=== PATIENT | female | born 1980 | race Caucasian/White ===

== ENCOUNTER 2016-12-07 15:15 | Outpatient (RCR) | payer OTHER | END 2016-12-11 12:00 | disposition home or self-care (01) | LOC: PT 15:15 | PROVIDERS: ATTEND Orthopaedic Surgery | DX: S83.242D Other tear of medial meniscus, current injury, left knee, subsequent encounter (principal); X58.XXXD Exposure to other specified factors, subsequent encounter; M25.662 Stiffness of left knee, not elsewhere classified ==

== ENCOUNTER → 2017-01-03 | Outpatient (CLI) | payer OTHER | LOC: LAB 10:37 | PROVIDERS: ATTEND Family Medicine | DX: Z20.2 Contact with and (suspected) exposure to infections with a predominantly sexual mode of transmission (principal) | CPT/HCPCS: 36415; 86592; 86695; 86696 ==

== ENCOUNTER 2017-01-30 07:22 | Emergency (ER) | payer OTHER ==
[~2017-01-30] VITALS: Ht 167.6 cm; Wt 95.3 kg
[2017-01-30 08:18] VITALS: BP 108/71
== END 2017-01-30 08:19 | disposition home or self-care (01) ==
LOC: ED 07:23
DX: J20.9 Acute bronchitis, unspecified (principal); F17.210 Nicotine dependence, cigarettes, uncomplicated; Z87.09 Personal history of other diseases of the respiratory system
CPT/HCPCS: 99282; 99283

== ENCOUNTER 2017-04-19 09:21 | Emergency (ER) | payer OTHER ==
[~2017-04-19] VITALS: Ht 167.6 cm; Wt 95.0 kg
[~2017-04-19 09:21] MED LIST: ALBU8.5H2 IH; ALBU8CC IH; AMOX1TAB12 PO; AZIT250T81 PO; BENZ-22 PO; IPRA3AMP11 INH; PRED20TA PO
--- OUTSIDE RECORDS SUMMARY | 2017-04-19 09:28 | XMS REPORT | Continuity of Care Document ---
Author Author [facility] Address Unknown Phone Unavailable Allergies Active Description Code Type Severity Reaction Onset Reported/Identified Relationship to Patient Clinical Status Yes ethinyl estradiol 1286 1 N/A N/A Yes levonorgestrel 1304 1 N/A N/A Yes Sulfa (Sulfonamide Antibiotics) 491 3 N/A N/A Yes niacin [id number] Drug Allergy Unknown N/A 01/30/2017 Yes Sulfa (Sulfonamide Antibiotics) [id number] Drug Allergy Unknown N/A 01/30/2017 Medications Problems Date Dx Coded Attending Type Code Diagnosis Diagnosed By 10/26/1199 Adam HERNANDEZ, Dae Pan Ot M25.662 STIFFNESS OF LEFT KNEE, NOT ELSEWHERE CL 10/26/1199 Dae Medina MD Ot S83.242D OTH TEAR OF MEDIAL MENISCUS, CURRENT INJ 10/26/1199 Dae Medina MD Ot X58.XXXD EXPOSURE TO OTHER SPECIFIED FACTORS, SUB 04/29/2012 Ot 493.92 ASTHMA, UNSPECIFIED, W (ACUTE) EXACERBAT 05/12/2015 Ej Collier MD Ot 927.3 05/12/2015 Ej Collier MD Ot 927.3 03/21/2016 Ej Collier MD Ot 927.3 CRUSHING INJURY FINGER 03/21/2016 Ej Collier MD Ot E928.9 ACCIDENT NOS 04/29/2016 Ej Collier MD Ot 927.3 CRUSHING INJURY FINGER 04/29/2016 Ej Collier MD Ot E928.9 ACCIDENT NOS 05/04/2016 ALEYDA WILLIAM Ot J30.2 OTHER SEASONAL ALLERGIC RHINITIS 05/04/2016 ALEYDA WILLIAM Ot J45.21 MILD INTERMITTENT ASTHMA WITH (ACUTE) EX 08/18/2016 Brenda HERNANDEZ, Jose Daniel Rodriguez Ot N60.01 SOLITARY CYST OF RIGHT BREAST 08/18/2016 Brenda HERNANDEZ, Jose Daniel Rodriguez Ot N60.02 SOLITARY CYST OF LEFT BREAST 08/18/2016 Brenda HERNANDEZ, Jose Daniel Rodriguez Ot N64.4 MASTODYNIA 09/29/2016 W M25.562 Acute pain of left knee 10/13/2016 W M25.562 Acute pain of left knee 10/21/2016 ALEYDA WILLIAM Ot J30.2 OTHER SEASONAL ALLERGIC RHINITIS 10/21/2016 ALEYDA WILLIAM Ot J45.21 MILD INTERMITTENT ASTHMA WITH (ACUTE) EX 10/21/2016 ELYSE HERNANDEZ, GUNNER Bernard Ot D24.1 BENIGN NEOPLASM OF RIGHT BREAST 10/26/2016 GUNNER PAPPAS MD Ot D24.1 BENIGN NEOPLASM OF RIGHT BREAST 10/27/2016 Jose Daniel Gutierrez MD Ot N60.01 SOLITARY CYST OF RIGHT BREAST 10/27/2016 Jose Daniel Gutierrez MD Ot N60.02 SOLITARY CYST OF LEFT BREAST 10/27/2016 Jose Daniel Gutierrez MD Ot N64.4 MASTODYNIA 11/07/2016 W S83.242A Tear of medial meniscus of left knee, current, unspecified tear type, initial encounter 11/07/2016 W Z01.818 Preop examination 11/13/2016 Amira HERNANDEZ, Ej Mercado Ot 927.3 CRUSHING INJURY FINGER 11/13/2016 Amira HERNANDEZ, Ej Mercado Ot E928.9 ACCIDENT NOS 11/13/2016 ALEYDA WILLIAM Ot J30.2 OTHER SEASONAL ALLERGIC RHINITIS 11/13/2016 ALEYDA WILLIAM Ot J45.21 MILD INTERMITTENT ASTHMA WITH (ACUTE) EX 11/13/2016 Brenda HERNANDEZ, Jose Daniel Rodriguez Ot N60.01 SOLITARY CYST OF RIGHT BREAST 11/13/2016 Jose Daniel Gutierrez MD Ot N60.02 SOLITARY CYST OF LEFT BREAST 11/13/2016 Jose Daniel Gutierrez MD Ot N64.4 MASTODYNIA 11/13/2016 ELYSE HERNANDEZ, GUNNER Bernard Ot D24.1 BENIGN NEOPLASM OF RIGHT BREAST 11/13/2016 SABRA HERNANDEZ, LITO Jaffe Ot F17.210 NICOTINE DEPENDENCE, CIGARETTES, UNCOMPL 11/13/2016 LITO MONTAÑO MD Ot F17.220 NICOTINE DEPENDENCE, CHEWING TOBACCO, UN 11/13/2016 SABRA HERNANDEZ, LITO Jaffe Ot M79.662 PAIN IN LEFT LOWER LEG 11/13/2016 LITO MONTAÑO MD Ot Z98.890 OTHER SPECIFIED POSTPROCEDURAL STATES 11/14/2016 Amira HERNANDEZ, Ej Mercado Ot 927.3 CRUSHING INJURY FINGER 11/14/2016 Amira HERNANDEZ, Ej Mercado Ot E928.9 ACCIDENT NOS 11/14/2016 ALEYDA WILLIAM Ot J30.2 OTHER SEASONAL ALLERGIC RHINITIS 11/14/2016 ALEYDA WILLIAM Ot J45.21 MILD INTERMITTENT ASTHMA WITH (ACUTE) EX 11/14/2016 Brenda HERNANDEZ, Jose Daniel Rodriguez Ot N60.01 SOLITARY CYST OF RIGHT BREAST 11/14/2016 Jose Daniel Gutierrez MD Ot N60.02 SOLITARY CYST OF LEFT BREAST 11/14/2016 Jose Daniel Gutierrez MD Ot N64.4 MASTODYNIA 11/14/2016 ELYSE HERNANDEZ, GUNNER Bernard Ot D24.1 BENIGN NEOPLASM OF RIGHT BREAST 11/18/2016 LITO MONTAÑO MD Ot F17.210 NICOTINE DEPENDENCE, CIGARETTES, UNCOMPL 11/18/2016 LITO MONTAÑO MD Ot F17.220 NICOTINE DEPENDENCE, CHEWING TOBACCO, UN 11/18/2016 LITO MONTAÑO MD Ot M79.662 PAIN IN LEFT LOWER LEG 11/18/2016 LITO MONTAÑO MD Ot Z98.890 OTHER SPECIFIED POSTPROCEDURAL STATES 11/18/2016 Jose Daniel Gutierrez MD Ot N60.01 SOLITARY CYST OF RIGHT BREAST 11/18/2016 Jose Daniel Gutierrez MD Ot N60.02 SOLITARY CYST OF LEFT BREAST 11/18/2016 Jose Daniel Gutierrez MD Ot N64.4 MASTODYNIA 11/23/2016 W 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, chondromalacia, left 11/23/2016 W S83.242A Tear of medial meniscus of left knee, current, unspecified tear type, initial encounter 11/23/2016 Dae Medina MD Ot M25.662 STIFFNESS OF LEFT KNEE, NOT ELSEWHERE CL 11/23/2016 Dae Medina MD Ot S83.242D OTH TEAR OF MEDIAL MENISCUS, CURRENT INJ 11/23/2016 Dae Medina MD Ot X58.XXXD EXPOSURE TO OTHER SPECIFIED FACTORS, SUB 11/24/2016 Dae Medina MD Ot M25.662 STIFFNESS OF LEFT KNEE, NOT ELSEWHERE CL 11/24/2016 Adam HERNANDEZ Dae L Ot S83.242D OTH TEAR OF MEDIAL MENISCUS, CURRENT INJ 11/24/2016 Adam HERNANDEZ Dae L Ot X58.XXXD EXPOSURE TO OTHER SPECIFIED FACTORS, SUB 11/26/2016 Adam HERNANDEZ Dae L Ot M25.662 STIFFNESS OF LEFT KNEE, NOT ELSEWHERE CL 11/26/2016 Adam HERNANDEZ Dae L Ot S83.242D OTH TEAR OF MEDIAL MENISCUS, CURRENT INJ 11/26/2016 Adam HERNANDEZ Dae L Ot X58.XXXD EXPOSURE TO OTHER SPECIFIED FACTORS, SUB 11/30/2016 Adam HERNANDEZ Dae L Ot M25.662 STIFFNESS OF LEFT KNEE, NOT ELSEWHERE CL 11/30/2016 Adam HERNANDEZ Dae L Ot S83.242D OTH TEAR OF MEDIAL MENISCUS, CURRENT INJ 11/30/2016 Adam HERNANDEZ Dae L Ot X58.XXXD EXPOSURE TO OTHER SPECIFIED FACTORS, SUB 12/02/2016 Adam HERNANDEZ Dae L Ot M25.662 STIFFNESS OF LEFT KNEE, NOT ELSEWHERE CL 12/02/2016 Adam HERNANDEZ Dae L Ot S83.242D OTH TEAR OF MEDIAL MENISCUS, CURRENT INJ 12/02/2016 Adam HERNANDEZ Dae L Ot X58.XXXD EXPOSURE TO OTHER SPECIFIED FACTORS, SUB 12/11/2016 Adam HERNANDEZ Dae L Ot M25.662 STIFFNESS OF LEFT KNEE, NOT ELSEWHERE CL 12/11/2016 Adam HERNANDEZ Dae L Ot S83.242D OTH TEAR OF MEDIAL MENISCUS, CURRENT INJ 12/11/2016 Adam HERNANDEZ Dae L Ot X58.XXXD EXPOSURE TO OTHER SPECIFIED FACTORS, SUB 12/20/2016 Adam HERNANDEZ Dae L Ot M25.662 STIFFNESS OF LEFT KNEE, NOT ELSEWHERE CL 12/20/2016 Adam HERNANDEZ Dae L Ot S83.242D OTH TEAR OF MEDIAL MENISCUS, CURRENT INJ 12/20/2016 Adam HERNANDEZ Dae L Ot X58.XXXD EXPOSURE TO OTHER SPECIFIED FACTORS, SUB 01/03/2017 Amira HERNANDEZ, Ej Mercado Ot 927.3 CRUSHING INJURY FINGER 01/03/2017 Ej Collier MD Ot E928.9 ACCIDENT NOS 01/03/2017 ALEYDA WILLIAM Ot J30.2 OTHER SEASONAL ALLERGIC RHINITIS 01/03/2017 ALEYDA WILLIAM Ot J45.21 MILD INTERMITTENT ASTHMA WITH (ACUTE) EX 01/03/2017 Jose Daniel Gutierrez MD Ot N60.01 SOLITARY CYST OF RIGHT BREAST 01/03/2017 Brenda HERNANDEZ, Jose Daniel Rodriguez Ot N60.02 SOLITARY CYST OF LEFT BREAST 01/03/2017 Jose Daniel Gutierrez MD Ot N64.4 MASTODYNIA 01/03/2017 ELYSE HERNANDEZ, GUNNER Bernard Ot D24.1 BENIGN NEOPLASM OF RIGHT BREAST 01/03/2017 Amira HERNANDEZ, Ej Mercado Ot 927.3 CRUSHING INJURY FINGER 01/03/2017 Ej Collier MD Ot E928.9 ACCIDENT NOS 01/03/2017 ALEYDA WILLIAM Ot J30.2 OTHER SEASONAL ALLERGIC RHINITIS 01/03/2017 ALEYDA WILLIAM Ot J45.21 MILD INTERMITTENT ASTHMA WITH (ACUTE) EX 01/03/2017 Jose Daniel Gutierrez MD Ot N60.01 SOLITARY CYST OF RIGHT BREAST 01/03/2017 Jose Daniel Gutierrez MD Ot N60.02 SOLITARY CYST OF LEFT BREAST 01/03/2017 Jose Daniel Gutierrez MD Ot N64.4 MASTODYNIA 01/03/2017 ELYSE HERNANDEZ, GUNNER S Ot D24.1 BENIGN NEOPLASM OF RIGHT BREAST 01/30/2017 Boone HERNANDEZ, Jose Mercado Ot Z20.2 CONTACT W AND EXPOSURE TO INFECT W A SEX 01/30/2017 KE SIMMONS DO Ot F17.210 NICOTINE DEPENDENCE, CIGARETTES, UNCOMPL 01/30/2017 KE SIMMONS DO Ot J20.9 ACUTE BRONCHITIS, UNSPECIFIED 01/30/2017 KE SIMMONS DO Ot R05 COUGH 01/30/2017 KE SIMMONS DO Ot Z87.09 PERSONAL HISTORY OF OTHER DISEASES OF TH 01/30/2017 Boone HERNANDEZ, Jose Mercado Ot Z20.2 CONTACT W AND EXPOSURE TO INFECT W A SEX 02/03/2017 KE SIMMONS DO Ot F17.210 NICOTINE DEPENDENCE, CIGARETTES, UNCOMPL 02/03/2017 KE SIMMONS DO Ot J20.9 ACUTE BRONCHITIS, UNSPECIFIED 02/03/2017 KE SIMMONS DO Ot R05 COUGH 02/03/2017 IRIS RACHEL KE Turner Ot Z87.09 PERSONAL HISTORY OF OTHER DISEASES OF 02/03/2017 IRIS RACHEL KE Turner Ot F17.210 NICOTINE DEPENDENCE, CIGARETTES, UNCOMPL 02/03/2017 IRIS RACHEL KE Yue Ot J20.9 ACUTE BRONCHITIS, UNSPECIFIED 02/03/2017 IRIS RACHEL KE Yue Ot R05 COUGH 02/03/2017 IRIS RACHEL KE Turner Ot Z87.09 PERSONAL HISTORY OF OTHER DISEASES OF 03/06/2017 Boone HERNANDEZ, Jose Mercado Ot Z20.2 CONTACT W AND EXPOSURE TO INFECT W A SEX 03/17/2017 Boone HERNANDEZ, Jose Mercado Ot Z20.2 CONTACT W AND EXPOSURE TO INFECT W A SEX 04/16/2017 Boone HERNANDEZ, Jose Mercado Ot Z20.2 CONTACT W AND EXPOSURE TO INFECT W A SEX Procedures Code [place] [address] X-RAY EXAM KNEE 4 OR MORE 09/29/2016 29651 OFFICE/OUTPATIENT VISIT NEW 09/29/2016 84052 OFFICE/OUTPATIENT VISIT EST 10/18/2016 24624 Preop Visit/Fracture Care Follow Up 11/03/2016 21075 CHEST X-RAY 2VW FRONTALTLATL 11/03/2016 Results Test Result Range Comprehensive metabolic panel - 11/13/16 11:12 Sodium measurement 111 70-110 Carbon dioxide measurement 25 22-29 Serum or plasma anion gap 15.9 3-15 BLOOD UREA NITROGEN 15 7-18 CREATININE SERUM 0.84 0.6-1.2 Brucella species antibody panel (IgG, IgM) 18 10-20 Estimated glomerular filtration rate (GFR) 93.4 Estimated glomerular filtration rate (GFR) non- 77.2 OSMOLALITY,CALCULATED 272 280-300 CALCIUM 9.5 8.8-10.8 Calculated ionized calcium measurement 4.1 3.8-4.6 BILIRUBIN,TOTAL 0.9 0.1-1.0 Serum or plasma alkaline phosphatase measurement 74 38-126 ASPARTATE AMINO TRANSFERASE 23 15-37 ALANINE AMINOTRANSFERASE 37 30-65 Serum or plasma total protein measurement 7.4 6.4-8.5 Serum or plasma albumin measurement 4.2 3.4-5.0 Serum or plasma albumin/globulin mass ratio 1.312 1.1-1.8 Complete blood count (CBC) with automated white blood cell (WBC) differential - 11/13/16 11:12 Blood automated leukocyte count 11.70 4.0-11.0 Erythrocytes 5.36 4.00-5.00 12.0-16.0;g/dL 14.5 12.0-15.5 Hematocrit 43.20 35.00-45.00 Automated erythrocyte mean corpuscular volume 81 80-100 Mean corpuscular hemoglobin (MCH) determination 27.1 26.0-34.0 Automated erythrocyte mean corpuscular hemoglobin concentration measurement ( mass/volume) 33.6 31.0-37.0 Erythrocyte distribution width 14.3 11.8 -15.6 Automated blood platelet count 229 150- 450 Automated blood platelet mean volume measurement 9.9 6.0-9.5 Automated neutrophil percentage 69 51- 67 Lymphocytes/100 leukocytes 19 20-46 Automated monocyte percentage 7 3-11 Eosinophil count auto 3 0-4 Automated basophil percentage 1 0-2 Automated blood neutrophil count 8.1 Blood lymphocytes count (number/volume) 2.2 Automated blood monocyte count 0.9 Blood absolute eosinophil count 0.4 Basophils 0.1 Prothrombin time (PT) with international normalized ratio (INR) - 11/13/16 11: 12 Prothrombin time (PT) in platelet poor plasma by coagulation assay 12.4 10.0-12.5 INR 1.1 0.8-1.4 HIV 1 antibody detection by rapid immunoassay - 01/03/17 10:43 HIV 1 antibody detection by rapid immunoassay Negative Negative HIV 1+2 Ab+HIV1 p24 Ag - 01/03/17 10:43 HIV 1+2 Ab+HIV1 p24 Ag Negative Negative Internal QC - 01/03/17 10:43 Internal QC OK OK HSV 1/2 IGG - 01/03/17 10:43 Herpes simplex virus 1 Ab.IgG Positive Negative Herpes simplex virus 2 Ab.IgG Positive Negative Qualitative serum rapid plasma reagin (RPR) test - 01/03/17 10:43 Qualitative serum rapid plasma reagin (RPR) test Non- reactive Encounters ACCT No. Visit Date/Time Discharge Status Pt. Type Provider Facility Loc./Unit Complaint [id number] 01/30/2017 07:23:00 2016 08:19:[address] [facility] ED [id number] 12/07/2016 15:15:00 2016 12:00:00 DIS Outpatient Adam HERNANDEZ, [facility] PT LEFT TORN MINISCUS REPAIR [id number] 11/13/2016 10:33:00 2015 12:46:00 DIS Emergency SABRA HERNANDEZ, [facility] ED MEDICAL [id number] 01/30/2015 11:41:00 2014 23:59:59 CLS Outpatient Amira HERNANDEZ, Ej [facility] RAD WORK COMP INJURY [id number] 01/11/2017 13:00:00 PEN Preadmit ELYSE HERNANDEZ, [facility] RAD 6 MO F/U RT BREAST FIBROADENOMA [id number] 01/03/2017 10:37:00 ACT Outpatient Boone HERNANDEZ, [facility] LAB [id number] 10/05/2016 13:03:00 ACT Outpatient ELYSE HERNANDEZ, [facility] RAD PRIOR FIBRADENOMA/F/U STABILITY [id number] 07/04/2016 12:58:00 ACT Outpatient Brenda HERNANDEZ, Jose Daniel [facility] RAD MASTODYNIA - N64.4 [id number] 04/29/2016 10:34:00 ACT Outpatient LIANNA DOHERTY, ALEYDA Mendoza [facility] [id number] 04/29/2012 06:55:00 Document Registration
[2017-04-19] MEDS ORDERED: ALBUTEROL/IPRATROPIUM 3MG-0.5MG/3ML (DUONEB) NEB VIAL INH ONE (09:40)
[2017-04-19] MEDS ORDERED: predniSONE 20 MG (DELTASONE) TABLET PO ONE (09:50)
--- NOTE | 2017-04-19 11:00 | Diagnostic Imaging Report ---
INDICATION: Cough, asthma. EXAMINATION: 2-view chest 04/19/2017. COMPARISON: 07/20/2011. FINDINGS: There is minimal atelectasis at the left lung base. There is a vague density at the left lung base as well. This is most likely due to focal atelectatic change and superimposed osseous and vascular structures; however, short-term interval followup is recommended to assure complete resolution. Remaining lungs demonstrate no infiltrates or effusions. There is no pneumothorax. Heart and pulmonary vasculature appear unremarkable. IMPRESSION: Density at the left lung base likely focal atelectasis, less likely due to pneumonia. Correlate with symptoms. A short-term interval followup chest x-ray recommended to assure complete resolution of the small density at the left lung base as described above. Dictated by: Dictated on workstation # [id number]
[2017-04-19] MEDS ORDERED: PRED20TA PO (11:06)
[2017-04-19 13:01] VITALS: BP 145/70
[2017-04-20] MEDS ORDERED: MOME13HF2 IH (04:47)
[2017-04-20] MEDS ORDERED: ALBU2.5V12 INH (12:35)
== END 2017-04-19 11:17 | disposition home or self-care (01) ==
LOC: EDUNIT# 09:21 → ED 09:24
DX: J45.21 Mild intermittent asthma with (acute) exacerbation (principal)
CPT/HCPCS: 71020; 94640; 99282; 99283

== ENCOUNTER 2017-04-20 03:48 | Inpatient (IN) | payer OTHER ==
[~2017-04-20] VITALS: Ht 167.6 cm; Wt 97.1 kg
--- OUTSIDE RECORDS SUMMARY | 2017-04-20 03:53 | XMS REPORT | Continuity of Care Document ---
Author Author [facility] Address Unknown Phone Unavailable Allergies Active Description Code Type Severity Reaction Onset Reported/Identified Relationship to Patient Clinical Status Yes ethinyl estradiol 1286 1 N/A N/A Yes levonorgestrel 1304 1 N/A N/A Yes Sulfa (Sulfonamide Antibiotics) 491 3 N/A N/A Yes niacin [id number] Drug Allergy Unknown N/A 01/30/2017 Yes Sulfa (Sulfonamide Antibiotics) [id number] Drug Allergy Unknown N/A 01/30/2017 Medications Problems [...] KE SIMMONS DO Ot R05 COUGH 01/30/2017 EK SIMMONS DO Ot Z87.09 PERSONAL HISTORY OF [...] DEPENDENCE, CIGARETTES, UNCOMPL 02/03/2017 IRIS RACHEL KE Turner Ot J20.9 ACUTE BRONCHITIS, UNSPECIFIED 02/03/2017 IRIS RACHEL KE Turner Ot R05 COUGH 02/03/2017 IRIS RACHEL KE [...] AND EXPOSURE TO INFECT W A SEX 04/19/2017 Boone HERNANDEZ, Jose Mercado Ot Z20.2 CONTACT W AND EXPOSURE TO INFECT W A SEX Procedures Code Description [place] [address] X-RAY EXAM KNEE 4 OR MORE 09/29/2016 25662 OFFICE/OUTPATIENT VISIT NEW 09/29/2016 42842 OFFICE/OUTPATIENT VISIT EST 10/18/2016 27327 Preop Visit/Fracture Care Follow Up 11/03/2016 79421 CHEST X-RAY 2VW FRONTALTLATL 11/03/2016 Results Test [...] Status Pt. Type Provider Facility Loc./Unit Complaint [id number] 04/19/2017 09:24:00 2016 11:17:00 DIS Emergency [facility] ED [id number] 01/30/2017 07:23:00 2016 08:19:00 DIS Emergency SIMMONS [facility] ED [id number] 12/07/2016 15:15:00 2016 12:00:00 DIS Outpatient Adam HERNANDEZ, [facility] PT LEFT TORN MINISCUS REPAIR [id number] 11/13/2016 10:33:00 2015 12:46:00 DIS Emergency SABRA HERNANDEZ, LITO [facility] ED MEDICAL [id number] 01/30/2015 11:41:00 2014 23:59:59 CLS Outpatient Amira HERNANDEZ, Ej [facility] RAD WORK COMP INJURY [id number] 04/20/2017 03:50:00 ACT Emergency ALEXANDRA HERNANDEZ, MINDA [facility] ED [id number] 01/11/2017 13:00:00 PEN Preadmit ELYSE HERNANDEZ, [facility] RAD 6 MO F/U RT BREAST FIBROADENOMA [id number] 01/03/2017 10:37:00 ACT Outpatient Boone HERNANDEZ, Jose [facility] LAB [id number] 10/05/2016 13:03:00 ACT Outpatient ELYSE HERNANDEZ, [facility] RAD PRIOR FIBRADENOMA/F/U STABILITY [id number] 07/04/2016 12:58:00 ACT Outpatient Brenda HERNANDEZ, [facility] RAD MASTODYNIA - N64.4 [id number] 04/29/2016 10:34:00 ACT Outpatient LIANNA DOHERTY, ALEYDA [facility] [id number] 04/29/2012 06:55:00 Document Registration
--- OUTSIDE RECORDS SUMMARY | 2017-04-20 03:54 | XMS REPORT | Continuity of Care Document ---
Author Author [facility] Address Unknown Phone Unavailable Allergies Active Description Code Type Severity Reaction Onset Reported/Identified Relationship to Patient Clinical Status Yes ethinyl estradiol 1286 1 N/A N/A Yes levonorgestrel 1304 1 N/A N/A Yes Sulfa (Sulfonamide Antibiotics) 491 3 N/A N/A Yes niacin [id number] Drug Allergy Unknown N/A 01/30/2017 Yes Sulfa (Sulfonamide Antibiotics) [id number] Drug Allergy Unknown N/A 01/30/2017 Medications Problems [...] Ot Z98.890 OTHER SPECIFIED POSTPROCEDURAL STATES 11/14/2016 Amiar HERNANDEZ, Ej Mercado Ot 927.3 CRUSHING INJURY [...] MEDIAL MENISCUS, CURRENT INJ 11/26/2016 Adam HERNANDEZ Ade L Ot X58.XXXD EXPOSURE TO OTHER SPECIFIED [...] Turner Ot J20.9 ACUTE BRONCHITIS, UNSPECIFIED 02/03/2017 IRSI RACHEL KE Turner Ot R05 COUGH 02/03/2017 [...] Procedures Code Description [place] [address] X-RAY EXAM KNEE 4 OR MORE 09/29/2016 34024 OFFICE/OUTPATIENT VISIT NEW 09/29/2016 63736 OFFICE/OUTPATIENT VISIT EST 10/18/2016 75778 Preop Visit/Fracture Care Follow Up 11/03/2016 36676 CHEST X-RAY 2VW FRONTALTLATL 11/03/2016 Results Test [...] Status Pt. Type Provider Facility Loc./Unit Complaint [id number] 04/19/2017 09:24:00 2016 11:17:00 DIS Emergency [facility] ED [id number] 01/30/2017 07:23:00 2016 08:19:00 DIS Emergency SIMMONS [facility] ED [id number] 12/07/2016 15:15:00 2016 12:00:00 DIS Outpatient Adam HERNANDEZ, [facility] PT LEFT TORN MINISCUS REPAIR [id number] 11/13/2016 10:33:00 2015 12:46:00 DIS Emergency SABRA HERNANDEZ, LITO [facility] ED MEDICAL [id number] 01/30/2015 11:41:00 2014 23:59:59 CLS Outpatient Amira HERNANDEZ, Ej [facility] RAD WORK COMP INJURY [id number] 04/20/2017 03:50:00 ACT Emergency ALEXANDRA HERNANDEZ, MINDA [facility] ED [id number] 01/11/2017 13:00:00 PEN Preadmit ELYSE HERNANDEZ, [facility] RAD 6 MO F/U RT BREAST FIBROADENOMA [id number] 01/03/2017 10:37:00 ACT Outpatient Boone HERNANDEZ, Jose [facility] LAB [id number] 10/05/2016 13:03:00 ACT Outpatient ELYSE HERNANDEZ, [facility] RAD PRIOR FIBRADENOMA/F/U STABILITY [id number] 07/04/2016 12:58:00 ACT Outpatient Brenda HERNANDEZ, [facility] RAD MASTODYNIA - N64.4 [id number] 04/29/2016 10:34:00 ACT Outpatient LIANNA DOHERTY, ALEYDA [facility] [id number] 04/29/2012 06:55:00 Document Registration
[2017-04-20] MEDS ORDERED: ALBUTEROL/IPRATROPIUM 3MG-0.5MG/3ML (DUONEB) NEB VIAL INH ONE (04:00)
[2017-04-20] MEDS ORDERED: methylPREDNISolone 125 MG (Solu-MEDROL) VIAL ONE (04:18)
[2017-04-20] MEDS ORDERED: SODIUM CHLORIDE FLUSH 3 ML SYR IV PRN (04:20)
[2017-04-20] MEDS ORDERED: methylPREDNISolone 125 MG (Solu-MEDROL) VIAL IV ONE ×2 (04:20→21:00)
[2017-04-20 04:37] LABS: BASOPHILS % (AUTO) 1 % (0-2); EOSINOPHILS # (AUTO) 0.2 10^3uL; EOSINOPHILS % (AUTO) 1 % (0-4); LYMPHOCYTES # (AUTO) 2.8 X10^3; MEAN CORPUSCULAR HEMOGLOBIN 27.4 PG (26.0-34.0); MEAN CORPUSCULAR HGB CONC 32.7 g/dL (31.0-37.0); MEAN CORPUSCULAR VOLUME 84 FL (80-100); MEAN PLATELET VOLUME 10.6 FL (6.0-9.5); MONOCYTES # (AUTO) 0.9 X10^3; MONOCYTES % (AUTO) 7 % (3-11); NEUTROPHILS # (AUTO) 9.2 X10^3; NEUTROPHILS % (AUTO) 70 % (51-67); PLATELET COUNT 308 10^3uL (150-450); WHITE BLOOD COUNT 13.19 10^3uL (4.0-11.0)
[2017-04-20 04:42] LABS: ALBUMIN 3.9 g/dL (3.4-5.0); ANION GAP 14.6 MEQ/L (3-15); TOTAL PROTEIN 7.4 g/dL (6.4-8.5)
[2017-04-20] MEDS ORDERED: MOME13HF2 IH (04:47)
[2017-04-20] MEDS ORDERED: ONDANSETRON 4 MG (ZOFRAN) ORAL DISSOLVE TAB PO PRN (05:15)
[2017-04-20] MEDS ORDERED: IBUPROFEN 600 MG (MOTRIN) TAB PO PRN (05:15)
[2017-04-20] MEDS ORDERED: ACETAMINOPHEN 325 MG TAB (TYLENOL) PO PRN (05:15)
[2017-04-20] MEDS ORDERED: MAG HYDROX/AL HYDROX/SIMETH 200-200-20/5 ML (MAG-AL PLUS) 30 ML UDC PO PRN (05:15)
[2017-04-20] MEDS ORDERED: POLYETHYLENE GLYCOL 17 GM (MIRALAX) PACKET PO PRN (05:15)
--- NOTE | 2017-04-20 05:25 | NUR ---
Pt arrives to 305 via cart from ED. Ambulates to weight chair and bed. Has coughing fits with exertion. On 3L oxygen per nc.
[2017-04-20 05:30] VITALS: BP_SYST 131; BP_SYST 31; BP_DIAS 84
--- NOTE | 2017-04-20 05:35 | NUR ---
Dr Sullivan assesses pt via remote monitoring.
[2017-04-20] MEDS ORDERED: LORATADINE (CLARITIN) 10 MG TAB PO PRN (05:50)
--- NOTE | 2017-04-20 05:50 | History and Physical (E) ---
History & Physical PCP: Jose Shook MD Please note that the patient was seen via telemedicine with nursing assistance on 04/20/2017. CC Cough and short of breath HPI Ms. Cagle is a pleasant 36yo woman with h/o moderate persistent asthma with stable regimen as of late on Dulera and albuterol until early AM 04/19/2017 with wheezing/cough not productive. To ED with hypoxia improved then with nebs and steroids, discharged with prednisone 20mg to be TID but only with one dose prior to progressive overnight decline. In ED additional nebs (after hourly at home) along with solumedrol 125mg IV. No fevers, chills, pain or nausea. No other exposures except she still smokes. PMH As in HPI PSH 10/2016 meniscal surgery ALLERGIES: Please see list at end of report. HOME MEDICATIONS: Dulera and nebs FH Mother alive with asthma, no early CAD or cancer in parents with whom she lives SH Noted tobacco abuse, but not the last 2 days with illness, no other drugs or heavy etoh volunteered ROS 10+ neg aside from in HPI CONSTITUTION: Denies weight loss or gain. Denies fever or chills. HEENT: No change in vision or hearing. No sores in mouth, sore throat. CV: No chest pain, palpitations. PULM: No cough, shortness of breath, difficulty breathing. GI: No upset stomach, nausea, vomiting, constipation, or diarrhea. No blood in stool. : No dysuria. No blood in urine. MS: No new muscle or joint aches and pains. NEURO: No numbness or tingling. No weakness. INTEG: No rashes, lesions, or sores. OBJECTIVE 86-88% RA SpO2 P 111 RR 24 afebrile GEN: Awake, alert, oriented, NAD HEENT: EOMI, PERRL, moist oral mucosa. CV: RRR S1 S2 normal with no murmur LUNGS: Bilateral decreased breath sounds with expiratory wheezing worse with forced expiration, symmetrical. ABD: Soft, NT/ND with normal bowel sounds. EXTR: No C/C/E. Normal peripheral pulses. INTEG: No rash. NEURO: No focal motor neuro deficit. Weight: 95.5 kg LABS WBC 13.19 with recent steroids, K 3.3 with the albuterol Rxs, other all normal IMAGING CXR said normal per ED doctor ASSESSMENT Acute asthma exacerbation with hypoxia PLAN 1. Acute asthma exacerbation with hypoxia--admit to acute inpatient care status with the hypoxia, continue steroids IV for a couple more dose with scheduled duoneb and prn albuterol. Dulera will be ok as well. See 2. No definite infection, prn antihistamine. 2. Tobacco abuse--must stop. 3. Class 1 obesity 34. 4. Hypokalemia due to albuterol Rxs. 5. Leukemoid reaction with steroids. Full code Allergies/Home Medications Allergies: Coded Allergies: Sulfa (Sulfonamide Antibiotics) (Verified Allergy, Unknown, 04/20/17) niacin (Verified Allergy, Unknown, 04/20/17) Reported Home Medications Scheduled Albuterol Sulfate (Ventolin HFA) 90 MCG IH NEEDED (Reported) Mometasone/Formoterol (Dulera 100 mcg/5 mcg Inhaler) 2 PUFF IH HS (Reported) Prednisone (Prednisone) 3 TAB PO DAILY Discontinued Medications Azithromycin (Zithromax Z-Ray) 250 MG PO DIRECTED Discontinued Reason: No longer required Copies to: End of Report . YAA BOWEN MD April 20, 2017 05:50
[2017-04-20 07:40] VITALS: BP 115/61
--- NOTE | 2017-04-20 08:03 | NUR ---
NUTRITION ASSESSMENT Level 1 Patient: Cee Cagle Age/Sex: 36/F Date Screened: 04-20-17 Weight: 213.6#/97.1 kg Height: 66 inches Primary Diagnosis: asthma exacerbation Diet Order: regular Relevant labs: potassium 3.3, glucose 104 Food allergies: N Nutrition Assessment Criteria Age over 80: N Body Mass Index (BMI) under 19: N Admission Screening Indicates Risk? N Moderate/High Risk Diagnosis: N TPN or PPN: N NPO or clear liquid diet: N Serum Glucose <70 or >180: N Hgb A1c >6.7: N/A Total: 0 points Risk Screen: _X_ Patient at low nutritional risk based on available data; reevaluate in 5-7 days __ Patient at moderate nutritional risk based on available data; reevaluate in 3-5 days __ Patient at high nutritional risk; complete Nutrition Assessment within 48 hours of admission. Comments: No weight changes, no GI concerns. Will reassess as documented above.
[2017-04-20] MEDS ORDERED: methylPREDNISolone 125 MG (Solu-MEDROL) VIAL IV SCH (09:00)
--- NOTE | 2017-04-20 09:23 | Diagnostic Imaging Report ---
INDICATION: Shortness of breath. Compared 04/19/2017 FINDINGS: The lungs are clear. The heart and vessels normal. There is no effusion or pneumothorax. IMPRESSION: Unremarkable frontal chest Dictated by: Dictated on workstation # [id number]
[2017-04-20] MEDS: SODIUM CHLORIDE FLUSH 10 ML SYR IV PRN (10:03)
[2017-04-20] MEDS: ALBUTEROL/IPRATROPIUM 3MG-0.5MG/3ML (DUONEB) NEB VIAL INH SCH ×3 (10:48→22:41)
--- NOTE | 2017-04-20 11:38 | Progress Note (E) ---
Progress Note SUBJECTIVE Admitted after midnight. Came to ED with complaint of cough and dyspnea. Had been seen in ED 04/19 around 0900 and told she had asthma exacerbation. SpO2 noted to dip with coughing spells. In ED this visit, afebrile, RR 24, SpO2 90% on room air. HR 111. WBC was 13.19 with 70% N and no bands. Chemistry fairly unremarkable. CXR was not interpreted as pneumonia but there was some area of focal atelectasis, left lung base on CXR from first ED visit. Treated as asthma exacerbation and admitted for further management. Since admit, remains afebrile. Requiring 3 L oxygen. HR improving. On exam, she reports feeling much better, more easily able to breath, less chest heaviness. She had no viral syndrome preceding asthma attack. She does think it might be allergies. Updated her on findings, plan of care. OBJECTIVE Vital Signs Date Time Temp Pulse Resp B/P Pulse Ox O2 Delivery O2 Flow Rate FiO2 04/20/17 07:40 97.8 85 17 115/61 91 Nasal cannula 04/20/17 05:11 3 GEN: Awake, alert, interactive, oriented. HEENT: EOMI, clear sclerae, mildly dry oral mucosa. CV: Regular without murmur. PULM: Coarse wheeze in bases bilaterally but improving air movement overall. ABD: Soft, NT/ND with normal bowel sounds. EXTR: No edema. INTEG: Mildly diaphoretic but no rash. NEURO: No focal motor neuro deficit. Lab-Past 14 Days, 35 Results 04/20/17 04:25: Alanine Aminotransferase (ALT/SGPT) 37, Albumin 3.9, Albumin/Globulin Ratio 1.114, Alkaline Phosphatase 64, Anion Gap 14.6, Aspartate Amino Transf (AST/SGOT ) 27, BUN/Creatinine Ratio 14, Basophils # (Auto) 0.1, Basophils (%) (Auto) 1, Blood Urea Nitrogen 12, Calcium Level 9.2, Calcium/Ionized Calcium Ratio 4.0, Calculated Osmolality 275L, Carbon Dioxide Level 22, Chloride Level 109H, Creatinine 0.87, Eosinophils # (Auto) 0.2, Eosinophils (%) (Auto) 1, Estimat Glomerular Filtration Rate 89.1, Estimated GFR (Non- 73.7, Glucose Level 104, Hematocrit 41.00, Hemoglobin 13.4, Lymphocytes # (Auto) 2.8, Lymphocytes (%) (Auto) 21, Mean Corpuscular Hemoglobin 27.4, Mean Corpuscular Hemoglobin Concent 32.7, Mean Corpuscular Volume 84, Mean Platelet Volume 10.6H , Monocytes # (Auto) 0.9, Monocytes (%) (Auto) 7, Neutrophils # (Auto) 9.2, Neutrophils (%) (Auto) 70H, Platelet Count 308, Potassium Level 3.3L, Red Blood Count 4.89, Red Cell Distribution Width 15.7H, Sodium Level 142, Total Bilirubin 0.4#, Total Protein 7.4, White Blood Count 13.19H IMAGING 04/20/17 CHEST 1 VIEW, AP/PA ONLY* INDICATION: Shortness of breath. Compared FINDINGS: The lungs are clear. The heart and vessels normal. There is no effusion or pneumothorax. IMPRESSION: Unremarkable frontal chest 04/19/17 CHEST PA/LAT (2 VIEW)* INDICATION: Cough, asthma. EXAMINATION: 2-view chest 04/19/2017. COMPARISON: 07/20/2011. FINDINGS: There is minimal atelectasis at the left lung base. There is a vague density at the left lung base as well. This is most likely due to focal atelectatic change and superimposed osseous and vascular structures; however, short-term interval followup is recommended to assure complete resolution. Remaining lungs demonstrate no infiltrates or effusions. There is no pneumothorax. Heart and pulmonary vasculature appear unremarkable. IMPRESSION: Density at the left lung base likely focal atelectasis , less likely due to pneumonia. Correlate with symptoms. A short-term interval followup chest x-ray recommended to assure complete resolution of the small density at the left lung base as described above. ASSESSMENT Cee Cagle is a 36 year old female admitted from ED 04/20 where she presented for the second time in 2 days with acute respiratory distress that progressed, attributed to moderate persistent asthma with acute exacerbation. PLAN * Acute Respiratory Failure: Attributed to asthma exacerbation. Oxygen protocol. Treat asthma. * Moderate Persistent Asthma with Acute Exacerbation: Failed trial of outpatient management. Oxygen protocol. Duoneb scheduled QID. Albuterol PRN. Continued fluticasone/salmeterol (sub for mometasone/formoterol) but increase to BID. Methylprednisolone with transition to prednisone. Added montelukast 05/ 25. Monitor peak flow. * Tobacco abuse: nicotine patch. Assistant Track Coach cessation. * F/E/N: Regular diet. Peripheral IV. Got NS bolus on admit. * Prophylaxis: Ambulate * Code Status: Full * Dispo: Inpatient. Expect 2 day stay. NICK GAYLE MD April 20, 2017 11:29
[2017-04-20] MEDS ORDERED: cefTRIAXone SODIUM 2 GM in SODIUM CHLORIDE 50 ML IV SCH (11:55)
[2017-04-20] MEDS ORDERED: ALBU2.5V12 INH (12:35)
--- NOTE | 2017-04-20 12:37 | NUR ---
MED REC COMPLETE--current med list obtained from retail pharmacy ([facility]) and patient interview.
[2017-04-20] MEDS: NICOTINE 21 MG (NICODERM) PATCH TD SCH (13:11)
[2017-04-20] MEDS ORDERED: [UNRECOGNIZED DRUG - OTHER] IM ONE (15:00)
--- NOTE | 2017-04-20 15:01 | NUR ---
MULTIDISCIPLINARY MTG/DR. GAYLE: Pt. admitted for asthma exacerbation. Pt. was treated as an outpatient but was unsuccessful. RT will obtain a peak flow today. Pt. possibly discharged home tomorrow. No discharge needs identified at this time.
[2017-04-20 15:11] VITALS: BP 118/62
--- NOTE | 2017-04-20 15:28 | NUR ---
Headache reported and tylenol given. Aid reported HR up to 108. This senior copywriter offered to remove patch, but patient stated she was doing ok and thought the nicotine patch was helping. Tylenol 650 mg. given for headache. Nicotine patch left in place.
--- NOTE | 2017-04-20 18:00 | NUR ---
Patient has denied needs throughout the day. Remains on O2 at 3L/NC. Spent her time doing word puzzles, on phone and watching TV. Visitor present.
--- NOTE | 2017-04-20 18:18 | NUR ---
Pnuemo vaccine given. VIS given to patient prior.
[2017-04-20] MEDS: MONTELUKAST 10 MG (SINGULAIR) TAB PO SCH (20:23)
--- NOTE | 2017-04-20 20:40 | NUR ---
This RN called to patient room at this time. Patient was up to restroom. Nasal cannula tubing not long enough to reach to restroom. Patient removed NC to go to restroom. Patient is now coughing and very short of breath. RT notified for extension tubing and requested for a PRN breathing treatment. See eMAR. Will continue to monitor patient closely.
[2017-04-20] MEDS: ALBUTEROL 0.083% NEB SOLUTION 2.5 MG/3 ML VIAL INH PRN (20:42)
[2017-04-20] MEDS: FLUTICASONE/SALMETEROL HFA 115/21 MCG (ADVAIR) COMMON CANNISTER INH SCH (20:45)
[2017-04-20] MEDS ORDERED: FLUTICASONE/SALMETEROL HFA 115/21 MCG (ADVAIR) COMMON CANNISTER INH SCH (21:00)
[2017-04-21] VITALS: BP 124/52
--- NOTE | 2017-04-21 01:32 | NUR ---
This RN called to patient room at this time. Patient is complaining of feeling short of breath at this time. Patient remains on 3L via NC. RT notified. RT to come to unit to administer breathing treatment. See eMAR. Will continue to monitor patient closely.
[2017-04-21] MEDS: ALBUTEROL 0.083% NEB SOLUTION 2.5 MG/3 ML VIAL INH PRN ×2 (01:35→09:07)
[2017-04-21] MEDS: ALBUTEROL/IPRATROPIUM 3MG-0.5MG/3ML (DUONEB) NEB VIAL INH SCH ×4 (05:38→21:30)
[2017-04-21 07:33] VITALS: BP 106/66
[2017-04-21] MEDS: predniSONE 20 MG (DELTASONE) TABLET PO SCH (08:12)
[2017-04-21] MEDS: NICOTINE 21 MG (NICODERM) PATCH TD SCH (08:12)
--- NOTE | 2017-04-21 08:14 | Progress Note (E) ---
Progress Note SUBJECTIVE No major issues overnight. Peak flow in 400's. RT feels breathing treatments aren't making much difference for her. She still requires oxygen 2 L this AM. Discharge had been planned, but deferred now because of this change. Wells score for PE currently 0 but was 1.5 (for tachycardia) on admit. Checking D- dimer and if positive, plan to check CT chest angio. On exam, discussed risk factors. She has been driving back and forth to [place] recently but didn't experiencing any unilateral leg swelling or pain during her travels. She is a smoker. Overweight. Does not take hormones. Still has coarse bibasilar rales and wheezes. Discussed possibility of viral illness. Added guaifenesin. OBJECTIVE Vital Signs Date Time Temp Pulse Resp B/P Pulse Ox O2 Delivery O2 Flow Rate FiO2 04/21/17 07:33 97.5 81 18 106/66 96 Nasal cannula 04/20/17 05:11 3 I & O 04/20/17 04/21/17 Cumulative From/Thru 19:00 07:00 04/20/17 04:00 - 04/21/17 06:15 Intake Total 1186 ml 700 ml 1886 ml Output Total 350 ml 600 ml 950 ml Balance 836 ml 100 ml 936 ml GEN: Awake, alert, interactive, oriented. HEENT: EOMI, clear sclerae, mildly dry oral mucosa. CV: Regular without murmur. PULM: Coarse rales in bases bilaterally, wheezes apically, coughs with deep inspiration. ABD: Soft, NT/ND with normal bowel sounds. EXTR: No edema. No calf tenderness or swelling. INTEG: Mildly diaphoretic but no rash. NEURO: No focal motor neuro deficit. Lab-Past 14 Days, 35 Results 04/20/17 04:25: Alanine Aminotransferase (ALT/SGPT) 37, Albumin 3.9, Albumin/Globulin Ratio 1.114, Alkaline Phosphatase 64, Anion Gap 14.6, Aspartate Amino Transf (AST/SGOT ) 27, BUN/Creatinine Ratio 14, Basophils # (Auto) 0.1, Basophils (%) (Auto) 1, Blood Urea Nitrogen 12, Calcium Level 9.2, Calcium/Ionized Calcium Ratio 4.0, Calculated Osmolality 275L, Carbon Dioxide Level 22, Chloride Level 109H, Creatinine 0.87, Eosinophils # (Auto) 0.2, Eosinophils (%) (Auto) 1, Estimat Glomerular Filtration Rate 89.1, Estimated GFR (Non- 73.7, Glucose Level 104, Hematocrit 41.00, Hemoglobin 13.4, Lymphocytes # (Auto) 2.8, Lymphocytes (%) (Auto) 21, Mean Corpuscular Hemoglobin 27.4, Mean Corpuscular Hemoglobin Concent 32.7, Mean Corpuscular Volume 84, Mean Platelet Volume 10.6H , Monocytes # (Auto) 0.9, Monocytes (%) (Auto) 7, Neutrophils # (Auto) 9.2, Neutrophils (%) (Auto) 70H, Platelet Count 308, Potassium Level 3.3L, Red Blood Count 4.89, Red Cell Distribution Width 15.7H, Sodium Level 142, Total Bilirubin 0.4#, Total Protein 7.4, White Blood Count 13.19H IMAGING 04/20/17 CHEST 1 VIEW, AP/PA ONLY* INDICATION: Shortness of breath. Compared FINDINGS: The lungs are clear. The heart and vessels normal. There is no effusion or pneumothorax. IMPRESSION: Unremarkable frontal chest 04/19/17 CHEST PA/LAT (2 VIEW)* INDICATION: Cough, asthma. EXAMINATION: 2-view chest 04/19/2017. COMPARISON: 07/20/2011. FINDINGS: There is minimal atelectasis at the left lung base. There is a vague density at the left lung base as well. This is most likely due to focal atelectatic change and superimposed osseous and vascular structures; however, short-term interval followup is recommended to assure complete resolution. Remaining lungs demonstrate no infiltrates or effusions. There is no pneumothorax. Heart and pulmonary vasculature appear unremarkable. IMPRESSION: Density at the left lung base likely focal atelectasis , less likely due to pneumonia. Correlate with symptoms. A short-term interval followup chest x-ray recommended to assure complete resolution of the small density at the left lung base as described above. ASSESSMENT Cee Cagle is a 36 year old female admitted from ED 04/20 where she presented for the second time in 2 days with acute respiratory distress that progressed, attributed to moderate persistent asthma with acute exacerbation. PLAN * Acute Respiratory Failure: Attributed to asthma exacerbation. PE considered in light of persistent oxygen requirement. Wells score on admit was 1.5 (PE unlikely.) Check D-Dimer and if positive, check CT chest angio. Screen for viral URI. Oxygen protocol. Treat asthma. * Moderate Persistent Asthma with Acute Exacerbation: Failed trial of outpatient management. Oxygen protocol. Duoneb scheduled QID. Albuterol PRN. Continued fluticasone/salmeterol (sub for mometasone/formoterol) but increase to BID. Methylprednisolone with transition to prednisone. Added montelukast . Monitor peak flow. * Cough: Attributed to asthma. Guaifenesin. * Tobacco abuse: nicotine patch. Home Coordinator cessation. * F/E/N: Regular diet. Peripheral IV. Got NS bolus on admit. * Prophylaxis: Ambulate * Code Status: Full * Dispo: Inpatient. Defer discharge because of persistent oxygen requirement. NICK GAYLE MD April 21, 2017 08:14
[2017-04-21 08:33] LABS: BASOPHILS % (AUTO) 0 % (0-2); EOSINOPHILS % (AUTO) 0 % (0-4); LYMPHOCYTES # (AUTO) 1.6 X10^3; MEAN CORPUSCULAR HEMOGLOBIN 27.4 PG (26.0-34.0); MEAN CORPUSCULAR HGB CONC 32.3 g/dL (31.0-37.0); MEAN CORPUSCULAR VOLUME 85 FL (80-100); MEAN PLATELET VOLUME 10.5 FL (6.0-9.5); MONOCYTES # (AUTO) 0.8 X10^3; MONOCYTES % (AUTO) 6 % (3-11); NEUTROPHILS # (AUTO) 10.7 X10^3; NEUTROPHILS % (AUTO) 81 % (51-67); PLATELET COUNT 255 10^3uL (150-450); WHITE BLOOD COUNT 13.14 10^3uL (4.0-11.0)
[2017-04-21] MEDS: PATCH REMOVAL TOP SCH (08:49)
[2017-04-21] MEDS: guaiFENesin ER 600 MG (MUCINEX) TAB PO SCH ×2 (09:15→20:30)
[2017-04-21] MEDS ORDERED: diphenhydrAMINE 50 MG/ML INJ (BENADRYL) IV ONE (10:15)
[2017-04-21] MEDS: SODIUM CHLORIDE FLUSH 10 ML SYR IV PRN (10:21)
--- NOTE | 2017-04-21 10:25 | NUR ---
Patient to radiology via wheelchair. Premedicated with Benadryl 25mg IVP per order. 20g IV in RAC initiated on first attempt by this nurse per radiology request.
[2017-04-21] MEDS: FLUTICASONE/SALMETEROL HFA 115/21 MCG (ADVAIR) COMMON CANNISTER INH SCH ×2 (11:17→21:30)
--- NOTE | 2017-04-21 11:38 | NUR ---
0755 SpO2 on 3 lpm O2 = 96%, decreased to room air. 0804 SpO2 on room air = 89, O2 replaced at 2 lpm. Pt slept thru procedure. Dr notified. 1117 SpO2 on 2 lpm O2 = 92. PF = 360/390 which is 88%/95% predicted (410), pt states her 'normal 'PF is low 400's. Pt states she is s/p knee surg Oct 2016 and has had calf pain 2 'bleeding into calf from surgery'. Pt also states she has done a lot of traveling to [place] past few months. Pt states she does not feel breathing tx are helping much. She states she feels she is exhaling comfortably and fully but c/o 'can't get enough air in'. Dr aware. BrS w I wheezes and I squeaks bibasilar L>R.
--- NOTE | 2017-04-21 12:01 | Diagnostic Imaging Report ---
PROCEDURE: CT angiography of the chest with contrast. TECHNIQUE: Multiple contiguous axial images were obtained through the chest after uneventful bolus administration of intravenous contrast. Reconstructed CTA MIP acquisitions were also performed. INDICATION: Positive D-dimer. Hypoxia. EXAMINATION: CTA of the chest with contrast 04/21/2017. FINDINGS: There is a poor bolus limiting evaluation of the pulmonary vessels. No central pulmonary emboli are appreciated; however, the remaining more peripheral vessels are poorly evaluated due to poor opacification. If there is continued concern, a short-term followup could be performed. The thoracic aorta demonstrates no acute abnormalities. Several scattered nonenlarged lymph nodes in the precarinal region are noted. There are calcified nodes in the subcarinal region and in the left hilum. Within the left lung base there is a calcified nodule consistent with calcified granuloma. Within the right lung base there is an airspace opacity which is 14 mm in greatest dimension and nonspecific. There is an oval density within the right midlung peripherally which is 8 mm in greatest dimension. The remaining lungs demonstrate chronic-appearing coarsened interstitial markings. There is no pericardial or pleural effusion. Minimal pleural thickening noted bilaterally at the bases. The visualized upper abdominal structures demonstrate fairly marked diffuse fatty infiltration throughout the liver. The visualized aspects of the left kidney appear somewhat atrophied likely a chronic process. The osseous structures demonstrate no acute abnormalities. Within the visualized aspects of the breasts there are at least two nodular-appearing densities in the right breast the largest of which is laterally located and measures 2.2 cm in size. The more medial adjacent lesion is 1.7 cm. There is a vague rounded density in the peripheral aspect of the left lower breast measuring 1.5 cm. The right breast has been evaluated with sonography; the most recent was 10/05/2016. At that time findings within the right breast were noted, and a three-month ultrasound followup was recommended. If this has not been performed at an outside facility, repeat imaging of both breasts would be recommended with mammogram and sonography. IMPRESSION: 1. No central pulmonary emboli. The remaining vessels are not well evaluated due to poor bolus, and a more distal pulmonary embolus would be difficult to exclude. See above discussion and recommendations. 2. Noncalcified density in the right midlung and at the right lung base nonspecific at this time. A short-term interval followup in three months recommended to assure complete resolution and/or stability. The other calcifications on the left appear calcified consistent with old granulomatous disease as do the calcified lymph nodes in the left hilum and mediastinum. 3. Lesions noted in both breasts. See above discussion and recommendations. 4. Other incidental findings as noted above. Dictated by: Dictated on workstation # [id number]
[2017-04-21 15:16] VITALS: BP 102/50
[2017-04-21] MEDS: DOXYCYCLINE 100 MG (VIBRAMYCIN) TABLET PO SCH (18:02)
--- NOTE | 2017-04-21 18:13 | NUR ---
Patient sitting up in bed watching TV. Requires 2L of 02 per nc throughout day shift. Continues to c/o SOA with exertion and intermittently at rest. Minimal sputum production noted with persistent hacking cough. Denies pain. Call light in reach.
[2017-04-21] MEDS: MONTELUKAST 10 MG (SINGULAIR) TAB PO SCH (20:30)
[2017-04-22] VITALS: BP 100/58
[2017-04-22] MEDS: ALBUTEROL 0.083% NEB SOLUTION 2.5 MG/3 ML VIAL INH PRN (01:29)
--- NOTE | 2017-04-22 04:07 | NUR ---
1920-Pt is sitting up in bed visiting with family, Resp are even and nonlabored, LCTAB, currently wearing 2LPM of O2. Reports that she bumped her IV earlier and it is red, this RN flushed IV and it is patent at this time, will continue to monitor. Denies pain or discomfort at this time. Call light is in reach, will continue to monitor. 0400-Pt is resting in bed asleep, does not appear in pain or discomfort at this time. Call light is in reach, will continue to monitor.
[2017-04-22] MEDS: DOXYCYCLINE 100 MG (VIBRAMYCIN) TABLET PO SCH ×2 (06:05→18:35)
[2017-04-22] MEDS: ALBUTEROL/IPRATROPIUM 3MG-0.5MG/3ML (DUONEB) NEB VIAL INH SCH ×4 (06:19→22:50)
[2017-04-22 07:49] VITALS: BP 105/62
--- NOTE | 2017-04-22 08:45 | NUR ---
PT C/O PAIN IN IVL SITE IN RFA, SITE IS NOTEDLY PINK AND TENDER, THIS WAS DC'D WITHOUT INCIDENT, WILL MONITOR.
[2017-04-22] MEDS: PATCH REMOVAL TOP SCH (09:40)
[2017-04-22] MEDS: NICOTINE 21 MG (NICODERM) PATCH TD SCH (09:42)
[2017-04-22] MEDS: guaiFENesin ER 600 MG (MUCINEX) TAB PO SCH ×2 (09:42→20:55)
[2017-04-22] MEDS: predniSONE 20 MG (DELTASONE) TABLET PO SCH (09:42)
--- NOTE | 2017-04-22 10:55 | Progress Note (E) ---
Progress Note SUBJECTIVE Still on 2 L oxygen. Peak flows have been > 50% predicted. Added doxycycline and guaifenesin yesterday for concern of bronchitis. Good antidiuresis yesterday. No BM since admit. Respiratory PCR panel was negative. CT chest angio was suboptimal but she had no evidence for central blood clot. There was some concern for small pulmonary nodules of undetermined significance. Updated patient regarding these findings and recommended 3-month follow-up CT. Still coughing. Now a bit productive so encouraged her to provide a sputum sample. OBJECTIVE Vital Signs Date Time Temp Pulse Resp B/P Pulse Ox O2 Delivery O2 Flow Rate FiO2 04/22/17 07:49 97.1 64 18 105/62 95 Nasal cannula 04/20/17 05:11 3 I & O 04/21/17 04/22/17 Cumulative From/Thru 19:00 07:00 04/20/17 04:00 - 04/22/17 05:36 Intake Total 871 ml 900 ml 3657 ml Output Total 1000 ml 2050 ml 4000 ml Balance -129 ml -1150 ml -343 ml GEN: Awake, alert, interactive, oriented. HEENT: EOMI, clear sclerae, mildly dry oral mucosa. CV: Regular without murmur. PULM: Coarse rales in bases bilaterally, wheezes in bases, coughs with deep inspiration. ABD: Soft, NT/ND with normal bowel sounds. EXTR: No edema. No calf tenderness or swelling. INTEG: Mildly diaphoretic but no rash. NEURO: No focal motor neuro deficit. Lab-Past 14 Days, 35 Results 04/20/17 04:25: Alanine Aminotransferase (ALT/SGPT) 37, Albumin 3.9, Albumin/Globulin Ratio 1.114, Alkaline Phosphatase 64, Anion Gap 14.6, Aspartate Amino Transf (AST/SGOT ) 27, BUN/Creatinine Ratio 14, Basophils # (Auto) 0.1, Basophils (%) (Auto) 1, Blood Urea Nitrogen 12, Calcium Level 9.2, Calcium/Ionized Calcium Ratio 4.0, Calculated Osmolality 275L, Carbon Dioxide Level 22, Chloride Level 109H, Creatinine 0.87, Eosinophils # (Auto) 0.2, Eosinophils (%) (Auto) 1, Estimat Glomerular Filtration Rate 89.1, Estimated GFR (Non- 73.7, Glucose Level 104, Hematocrit 41.00, Hemoglobin 13.4, Lymphocytes # (Auto) 2.8, Lymphocytes (%) (Auto) 21, Mean Corpuscular Hemoglobin 27.4, Mean Corpuscular Hemoglobin Concent 32.7, Mean Corpuscular Volume 84, Mean Platelet Volume 10.6H , Monocytes # (Auto) 0.9, Monocytes (%) (Auto) 7, Neutrophils # (Auto) 9.2, Neutrophils (%) (Auto) 70H, Platelet Count 308, Potassium Level 3.3L, Red Blood Count 4.89, Red Cell Distribution Width 15.7H, Sodium Level 142, Total Bilirubin 0.4#, Total Protein 7.4, White Blood Count 13.19H 04/21/17 08:30: Basophils # (Auto) 0.0, Basophils (%) (Auto) 0, Eosinophils # (Auto) 0.0, Eosinophils (%) (Auto) 0, Hematocrit 40.50, Hemoglobin 13.1, Lymphocytes # (Auto ) 1.6, Lymphocytes (%) (Auto) 12L, Mean Corpuscular Hemoglobin 27.4, Mean Corpuscular Hemoglobin Concent 32.3, Mean Corpuscular Volume 85, Mean Platelet Volume 10.5H, Monocytes # (Auto) 0.8, Monocytes (%) (Auto) 6, Neutrophils # ( Auto) 10.7, Neutrophils (%) (Auto) 81H, Platelet Count 255, Red Blood Count 4.78 , Red Cell Distribution Width 15.9H, White Blood Count 13.14H, C-Reactive Protein 1.10H, D-Dimer 1107*H, Serum Test, Qualitative Negative 04/21/17 11:46: Adenovirus (PCR) Negative, Bordetella parapertussis DNA (PCR) Negative, Chlamydophila pneumoniae (PCR) Negative, Coronavirus Type 229E (PCR) Negative, Coronavirus Type HKU1 (PCR) Negative, Coronavirus Type NL63 (PCR) Negative, Coronavirus Type OC43 (PCR) Negative, Enterovirus/Rhinovirus (PCR) Negative, Human Metapneumovirus (PCR) Negative, Influenza Type A (H1) (PCR) Negative, Influenza Virus Type B (PCR) Negative, Mycoplasma pneumoniae (PCR) Negative, Parainfluenza Type 1 (PCR) Negative, Parainfluenza Type 2 (PCR) Negative, Parainfluenza Type 3 (PCR) Negative, Parainfluenza Type 4 (PCR) Negative, Respiratory Syncytial Virus (PCR) Negative MICRO 04/21 Resp PCR Panel Negative 04/21 Sputum culture PENDING SAMPLE IMAGING 04/21/17 CT ANGIO CHEST W PROCEDURE: CT angiography of the chest with contrast. TECHNIQUE: Multiple contiguous axial images were obtained through the chest after uneventful bolus administration of intravenous contrast. Reconstructed CTA MIP acquisitions were also performed. INDICATION: Positive D-dimer. Hypoxia. EXAMINATION: CTA of the chest with contrast 04/21/2017. FINDINGS: There is a poor bolus limiting evaluation of the pulmonary vessels. No central pulmonary emboli are appreciated; however, the remaining more peripheral vessels are poorly evaluated due to poor opacification. If there is continued concern, a short-term followup could be performed. The thoracic aorta demonstrates no acute abnormalities. Several scattered nonenlarged lymph nodes in the precarinal region are noted. There are calcified nodes in the subcarinal region and in the left hilum. Within the left lung base there is a calcified nodule consistent with calcified granuloma. Within the right lung base there is an airspace opacity which is 14 mm in greatest dimension and nonspecific. There is an oval density within the right midlung peripherally which is 8 mm in greatest dimension. The remaining lungs demonstrate chronic-appearing coarsened interstitial markings. There is no pericardial or pleural effusion. Minimal pleural thickening noted bilaterally at the bases. The visualized upper abdominal structures demonstrate fairly marked diffuse fatty infiltration throughout the liver. The visualized aspects of the left kidney appear somewhat atrophied likely a chronic process. The osseous structures demonstrate no acute abnormalities. Within the visualized aspects of the breasts there are at least two nodular-appearing densities in the right breast the largest of which is laterally located and measures 2.2 cm in size. The more medial adjacent lesion is 1.7 cm. There is a vague rounded density in the peripheral aspect of the left lower breast measuring 1.5 cm. The right breast has been evaluated with sonography; the most recent was 10/05/2016. At that time findings within the right breast were noted, and a three-month ultrasound followup was recommended. If this has not been performed at an outside facility, repeat imaging of both breasts would be recommended with mammogram and sonography. IMPRESSION: 1. No central pulmonary emboli. The remaining vessels are not well evaluated due to poor bolus, and a more distal pulmonary embolus would be difficult to exclude. See above discussion and recommendations. 2. Noncalcified density in the right midlung and at the right lung base nonspecific at this time. A short-term interval followup in three months recommended to assure complete resolution and/or stability. The other calcifications on the left appear calcified consistent with old granulomatous disease as do the calcified lymph nodes in the left hilum and mediastinum. 3. Lesions noted in both breasts. See above discussion and recommendations. 4. Other incidental findings as noted above. 04/20/17 CHEST 1 VIEW, AP/PA ONLY* INDICATION: Shortness of breath. Compared FINDINGS: The lungs are clear. The heart and vessels normal. There is no effusion or pneumothorax. IMPRESSION: Unremarkable frontal chest 04/19/17 CHEST PA/LAT (2 VIEW)* INDICATION: Cough, asthma. EXAMINATION: 2-view chest 04/19/2017. COMPARISON: 07/20/2011. FINDINGS: There is minimal atelectasis at the left lung base. There is a vague density at the left lung base as well. This is most likely due to focal atelectatic change and superimposed osseous and vascular structures; however, short-term interval followup is recommended to assure complete resolution. Remaining lungs demonstrate no infiltrates or effusions. There is no pneumothorax. Heart and pulmonary vasculature appear unremarkable. IMPRESSION: Density at the left lung base likely focal atelectasis , less likely due to pneumonia. Correlate with symptoms. A short-term interval followup chest x-ray recommended to assure complete resolution of the small density at the left lung base as described above. ASSESSMENT Cee Cagle is a 36 year old female admitted from ED 04/20 where she presented for the second time in 2 days with acute respiratory distress that progressed, attributed to moderate persistent asthma with acute exacerbation. PLAN * Acute Respiratory Failure: Attributed to asthma exacerbation. PE considered in light of persistent oxygen requirement. Wells score on admit was 1.5 (PE unlikely.) D-Dimer was positive. CT chest angio was suboptimal but showed no central embolism. Oxygen protocol. Treat asthma. * Bronchitis: On the basis of clinical exam. Respiratory PCR panel negative. Obtain sputum sample if able. Added guaifenesin and doxycycline 04/21. * Moderate Persistent Asthma with Acute Exacerbation: Failed trial of outpatient management. Oxygen protocol. Duoneb scheduled QID. Albuterol PRN. Continued fluticasone/salmeterol (sub for mometasone/formoterol) but increase to BID. Methylprednisolone with transition to prednisone. Added montelukast . Monitor peak flow. * Cough: Attributed to asthma. Guaifenesin. * Tobacco abuse: nicotine patch. [employer] cessation. * F/E/N: Regular diet. Peripheral IV. Got NS bolus on admit. * Prophylaxis: Ambulate * Code Status: Full * Dispo: Inpatient. Defer discharge again because of persistent oxygen requirement. NICK GAYLE MD April 22, 2017 09:49
[2017-04-22] MEDS: FLUTICASONE/SALMETEROL HFA 115/21 MCG (ADVAIR) COMMON CANNISTER INH SCH ×2 (11:23→22:50)
--- NOTE | 2017-04-22 11:27 | NUR ---
Pt found sitting in her chair on 3 l/min NC, SPO2 93%, HR 90, RR 20 and mildly labored with a loose NPC. BS have a fine wheeze in the right lobes with clear BS in left. Duoneb given via SVN/MASK, and 2p Advair 115/21 given via Spacer. BS unchanged post tx. Peak flow 400/410 with good effort.
--- NOTE | 2017-04-22 11:49 | NUR ---
Cecilia instructed, Pt has good effort and technique X5. Each attempt instigated a loose cough that she felt "was moving more stuff". I will run SVN in line on Cecilia starting with next Tx.
[2017-04-22 15:53] VITALS: BP 120/68
--- NOTE | 2017-04-22 17:31 | NUR ---
Pt found lying in bed on 2 l/min NC, SPO2 93%, HR 86, RR 18 and mildly labored with a loose NPC. Duoneb given via SVN/Acapella which produced more loose NPC. BS unchanged post Tx.
--- NOTE | 2017-04-22 18:05 | NUR ---
Pt. has been up in chair this afternoon, working on word puzzles. She has denied pain and dyspnea, but continues to require oxygen.
[2017-04-22] MEDS: MONTELUKAST 10 MG (SINGULAIR) TAB PO SCH (20:55)
[2017-04-23 00:05] VITALS: BP 114/71
--- NOTE | 2017-04-23 04:12 | NUR ---
1920-Pt is sitting up in bed watching neflix and working on puzzle, Resp are even and nonlabored, LCTAB, currently wearing 2LPM of O2. No IV access at this time. Denies pain or discomfort at this time. Call light is in reach, will continue to monitor. 0400-Pt is resting in bed asleep, does not appear in pain or discomfort at this time. Call light is in reach, will continue to monitor.
[2017-04-23] MEDS: DOXYCYCLINE 100 MG (VIBRAMYCIN) TABLET PO SCH (05:43)
[2017-04-23] MEDS: ALBUTEROL/IPRATROPIUM 3MG-0.5MG/3ML (DUONEB) NEB VIAL INH SCH ×2 (06:46→11:48)
[2017-04-23 08:13] VITALS: BP 122/75
--- NOTE | 2017-04-23 08:20 | NUR ---
PT IS ON RA, NO RESP DISTRESS NOTED, NO USE OF ACCESS. MUSCLES, NO NASAL FLARING OR DYSPNEA NOTED, PT DENIES PROBLEMS AT THIS TIME.
[2017-04-23] MEDS: predniSONE 20 MG (DELTASONE) TABLET PO SCH (08:34)
[2017-04-23] MEDS: guaiFENesin ER 600 MG (MUCINEX) TAB PO SCH (08:34)
[2017-04-23] MEDS: NICOTINE 21 MG (NICODERM) PATCH TD SCH (08:34)
[2017-04-23] MEDS: PATCH REMOVAL TOP SCH (09:47)
--- NOTE | 2017-04-23 10:32 | Discharge Instructions (E) ---
Discharge Instructions Instructions * You were evaluated and treated for exacerbation of asthma. Review the asthma action plan for guidelines on how to continue to treat your asthma at home. Be sure to use your peak flow meter to determine how well controlled your asthma symptoms are. To help in your recovery, Duoneb (albuterol/ipratropium) has been prescribed along with other asthma-controlling medications. Read the handouts for details. * You may have bronchitis triggering this asthma exacerbation. A course of doxycycline was prescribed to help with this. * You had a CT scan to evaluate your lungs. The study did not show evidence of blood clot but it did show some nodular abnormalities that are of uncertain significance. It is recommended that you have a follow-up CT scan of your chest in 3 months. If the abnormalities persist, your doctor will make recommendations regarding further management. * Quitting smoking is one of the most important things you can do for your health and for control of your asthma. It is highly recommended you quit. Review the provided handouts for details. Talk to your doctor about options available that can help you in your process to quit smoking. * Seek medication attention if you develop worse shortness of breath, high fever , chills, worse cough, or for any other concerns. Seek medical attention especially if your peak flow is 240 or less. Activity Instructions As tolerated. Doctor's Appointment Follow-up with your primary care doctor in 3-5 days. Discharge Diet: NICK Bashir MD April 23, 2017 10:32
--- NOTE | 2017-04-23 10:33 | NUR ---
DISCHARGE ORDER RECEIVED, PT REQ TO SHOWER, STS SHE WILL D/C AFTER LUNCH SOMETIME
[2017-04-23] MEDS ORDERED: DOXY100T41 PO (10:41)
[2017-04-23] MEDS ORDERED: MOME13HF2 IH (10:41)
[2017-04-23] MEDS ORDERED: PRD20T PO (10:41)
[2017-04-23] MEDS ORDERED: ALBU2.5V12 INH (10:41)
[2017-04-23] MEDS ORDERED: IPRA3AMP11 INH (10:41)
[2017-04-23] MEDS ORDERED: LRT10T PO (10:41)
[2017-04-23] MEDS ORDERED: AC325T PO (10:41)
[2017-04-23] MEDS ORDERED: GFN600TCR PO (10:41)
[2017-04-23] MEDS ORDERED: MNTL10T PO (10:41)
[2017-04-23] MEDS ORDERED: ALBU8CC IH (10:41)
[2017-04-23] MEDS: FLUTICASONE/SALMETEROL HFA 115/21 MCG (ADVAIR) COMMON CANNISTER INH SCH (11:48)
--- NOTE | 2017-04-23 11:52 | NUR ---
Pt found on RA, SPO2 96%, HR 94, RR 18 and non labored with a dry NPC, BS have expiratory wheezes in all lobes before Duoneb given via SVN/Acapella. BS unchanged post Tx. PF 450, predicted 410
--- NOTE | 2017-04-23 12:14 | NUR ---
DISCHARGE INST PROVIDED VERBALLY & PER PRINTED PACKET, PT DENIES QUESTIONS/CONCERNS, PHARMACIST IN TO DISCUSS MEDICATION REGIMEN PRIOR TO DISCHARGE. PT DISCHARGED AMB, ACCOMPANIED BY FAMILY & FREIGHT TEAM ASSOCIATE IZZY
--- NOTE | 2017-04-23 12:43 | Discharge Summary (E) ---
Discharge Summary (E) Admit Date/Time April 20, 2017 at 05:08 Discharge Date/Time April 23, 2017 Admitting Provider Lonnie Sullivan MD Primary Care Provider Jose Shook MD Attending Provider Lonnie Sullivan MD, Michael MD Consulting Provider History and Present Illness Cee Cagle is a 36 year old female admitted from ED 04/20 where she presented for the second time in 2 days with acute respiratory distress that progressed, attributed to moderate persistent asthma with acute exacerbation. She required oxygen initially. So improved gradually with treatment of asthma exacerbation. She was also felt to have bronchitis and doxycycline was added. By 04/23 her lung exam was much improved, peak flow was improved, and she was off oxygen. She was discharged home in improved, stable condition. Hospital Course and Treatment * Acute Respiratory Failure: Resolved. Attributed to asthma exacerbation. PE considered in light of persistent oxygen requirement. Wells score on admit was 1.5 (PE unlikely.) D-Dimer was positive. CT chest angio was suboptimal but showed no central embolism. Oxygen protocol. Treated asthma. * Pulmonary Nodules: As noted on CT chest. Uncertain significance. Treating bronchitis. Needs follow-up CT chest with contrast in 3 months. * Bronchitis: On the basis of clinical exam. Respiratory PCR panel negative. No sputum sample for culture. Added guaifenesin and doxycycline 04/21. Continued at discharge. * Moderate Persistent Asthma with Acute Exacerbation: Failed trial of outpatient management. Required oxygen on admit. Duoneb scheduled QID. Albuterol PRN. Continued fluticasone/salmeterol (sub for mometasone/formoterol) but increased to BID. Methylprednisolone with transition to prednisone. Added montelukast 04/20. Monitored peak flow. At discharge, provided asthma action plan and handouts regarding medications, MDI usage, peak flow usage. * Cough: Attributed to asthma. Guaifenesin. * Tobacco abuse: nicotine patch. Poultry [employer]ist cessation. Handouts provided. * F/E/N: Regular diet. Peripheral IV. Got NS bolus on admit. * Prophylaxis: Ambulate * Code Status: Full * Dispo: Inpatient. Once weaned to room air, discharged home in improved, stable condition. Discharge Physicial Exam General Vital Signs Date Time Temp Pulse Resp B/P Pulse Ox O2 Delivery O2 Flow Rate FiO2 04/23/17 08:13 97.0 91 18 122/75 90 Room air 04/20/17 05:11 3 GEN: Awake, alert, interactive, oriented. HEENT: EOMI, clear sclerae, mildly dry oral mucosa. CV: Regular without murmur. PULM: Coarse rales in bases bilaterally have improved. Wheezes in bases also improved. Less cough with deep inspiration. ABD: Soft, NT/ND with normal bowel sounds. EXTR: No edema. No calf tenderness or swelling. INTEG: No rash. NEURO: No focal motor neuro deficit. Laboratory/Radiology Data Laboratory Results-14 Days 04/20/17 04:25: Alanine Aminotransferase (ALT/SGPT) 37, Albumin 3.9, Albumin/Globulin Ratio 1.114, Alkaline Phosphatase 64, Anion Gap 14.6, Aspartate Amino Transf (AST/SGOT ) 27, BUN/Creatinine Ratio 14, Basophils # (Auto) 0.1, Basophils (%) (Auto) 1, Blood Urea Nitrogen 12, Calcium Level 9.2, Calcium/Ionized Calcium Ratio 4.0, Calculated Osmolality 275L, Carbon Dioxide Level 22, Chloride Level 109H, Creatinine 0.87, Eosinophils # (Auto) 0.2, Eosinophils (%) (Auto) 1, Estimat Glomerular Filtration Rate 89.1, Estimated GFR (Non- 73.7, Glucose Level 104, Hematocrit 41.00, Hemoglobin 13.4, Lymphocytes # (Auto) 2.8, Lymphocytes (%) (Auto) 21, Mean Corpuscular Hemoglobin 27.4, Mean Corpuscular Hemoglobin Concent 32.7, Mean Corpuscular Volume 84, Mean Platelet Volume 10.6H , Monocytes # (Auto) 0.9, Monocytes (%) (Auto) 7, Neutrophils # (Auto) 9.2, Neutrophils (%) (Auto) 70H, Platelet Count 308, Potassium Level 3.3L, Red Blood Count 4.89, Red Cell Distribution Width 15.7H, Sodium Level 142, Total Bilirubin 0.4#, Total Protein 7.4, White Blood Count 13.19H 04/21/17 08:30: Basophils # (Auto) 0.0, Basophils (%) (Auto) 0, Eosinophils # (Auto) 0.0, Eosinophils (%) (Auto) 0, Hematocrit 40.50, Hemoglobin 13.1, Lymphocytes # (Auto ) 1.6, Lymphocytes (%) (Auto) 12L, Mean Corpuscular Hemoglobin 27.4, Mean Corpuscular Hemoglobin Concent 32.3, Mean Corpuscular Volume 85, Mean Platelet Volume 10.5H, Monocytes # (Auto) 0.8, Monocytes (%) (Auto) 6, Neutrophils # ( Auto) 10.7, Neutrophils (%) (Auto) 81H, Platelet Count 255, Red Blood Count 4.78 , Red Cell Distribution Width 15.9H, White Blood Count 13.14H, C-Reactive Protein 1.10H, D-Dimer 1107*H, Serum Test, Qualitative Negative 04/21/17 11:46: Adenovirus (PCR) Negative, Bordetella parapertussis DNA (PCR) Negative, Chlamydophila pneumoniae (PCR) Negative, Coronavirus Type 229E (PCR) Negative, Coronavirus Type HKU1 (PCR) Negative, Coronavirus Type NL63 (PCR) Negative, Coronavirus Type OC43 (PCR) Negative, Enterovirus/Rhinovirus (PCR) Negative, Human Metapneumovirus (PCR) Negative, Influenza Type A (H1) (PCR) Negative, Influenza Virus Type B (PCR) Negative, Mycoplasma pneumoniae (PCR) Negative, Parainfluenza Type 1 (PCR) Negative, Parainfluenza Type 2 (PCR) Negative, Parainfluenza Type 3 (PCR) Negative, Parainfluenza Type 4 (PCR) Negative, Respiratory Syncytial Virus (PCR) Negative MICRO 04/21 Resp PCR Panel Negative IMAGING 04/21/17 CT ANGIO CHEST W PROCEDURE: CT angiography of the chest with contrast. TECHNIQUE: Multiple contiguous axial images were obtained through the chest after uneventful bolus administration of intravenous contrast. Reconstructed CTA MIP acquisitions were also performed. INDICATION: Positive D-dimer. Hypoxia. EXAMINATION: CTA of the chest with contrast 04/21/2017. FINDINGS: There is a poor bolus limiting evaluation of the pulmonary vessels. No central pulmonary emboli are appreciated; however, the remaining more peripheral vessels are poorly evaluated due to poor opacification. If there is continued concern, a short-term followup could be performed. The thoracic aorta demonstrates no acute abnormalities. Several scattered nonenlarged lymph nodes in the precarinal region are noted. There are calcified nodes in the subcarinal region and in the left hilum. Within the left lung base there is a calcified nodule consistent with calcified granuloma. Within the right lung base there is an airspace opacity which is 14 mm in greatest dimension and nonspecific. There is an oval density within the right midlung peripherally which is 8 mm in greatest dimension. The remaining lungs demonstrate chronic-appearing coarsened interstitial markings. There is no pericardial or pleural effusion. Minimal pleural thickening noted bilaterally at the bases. The visualized upper abdominal structures demonstrate fairly marked diffuse fatty infiltration throughout the liver. The visualized aspects of the left kidney appear somewhat atrophied likely a chronic process. The osseous structures demonstrate no acute abnormalities. Within the visualized aspects of the breasts there are at least two nodular-appearing densities in the right breast the largest of which is laterally located and measures 2.2 cm in size. The more medial adjacent lesion is 1.7 cm. There is a vague rounded density in the peripheral aspect of the left lower breast measuring 1.5 cm. The right breast has been evaluated with sonography; the most recent was 10/05/2016. At that time findings within the right breast were noted, and a three-month ultrasound followup was recommended. If this has not been performed at an outside facility, repeat imaging of both breasts would be recommended with mammogram and sonography. IMPRESSION: 1. No central pulmonary emboli. The remaining vessels are not well evaluated due to poor bolus, and a more distal pulmonary embolus would be difficult to exclude. See above discussion and recommendations. 2. Noncalcified density in the right midlung and at the right lung base nonspecific at this time. A short-term interval followup in three months recommended to assure complete resolution and/or stability. The other calcifications on the left appear calcified consistent with old granulomatous disease as do the calcified lymph nodes in the left hilum and mediastinum. 3. Lesions noted in both breasts. See above discussion and recommendations. 4. Other incidental findings as noted above. 04/20/17 CHEST 1 VIEW, AP/PA ONLY* INDICATION: Shortness of breath. Compared FINDINGS: The lungs are clear. The heart and vessels normal. There is no effusion or pneumothorax. IMPRESSION: Unremarkable frontal chest 04/19/17 CHEST PA/LAT (2 VIEW)* INDICATION: Cough, asthma. EXAMINATION: 2-view chest 04/19/2017. COMPARISON: 07/20/2011. FINDINGS: There is minimal atelectasis at the left lung base. There is a vague density at the left lung base as well. This is most likely due to focal atelectatic change and superimposed osseous and vascular structures; however, short-term interval followup is recommended to assure complete resolution. Remaining lungs demonstrate no infiltrates or effusions. There is no pneumothorax. Heart and pulmonary vasculature appear unremarkable. IMPRESSION: Density at the left lung base likely focal atelectasis , less likely due to pneumonia. Correlate with symptoms. A short-term interval followup chest x-ray recommended to assure complete resolution of the small density at the left lung base as described above. Discharge Disposition Discharged home. Instructions * You were evaluated and treated for exacerbation of asthma. Review the asthma action plan for guidelines on how to continue to treat your asthma at home. Be sure to use your peak flow meter to determine how well controlled your asthma symptoms are. To help in your recovery, Duoneb (albuterol/ipratropium) has been prescribed along with other asthma-controlling medications. Read the handouts for details. * You may have bronchitis triggering this asthma exacerbation. A course of doxycycline was prescribed to help with this. * You had a CT scan to evaluate your lungs. The study did not show evidence of blood clot but it did show some nodular abnormalities that are of uncertain significance. It is recommended that you have a follow-up CT scan of your chest in 3 months. If the abnormalities persist, your doctor will make recommendations regarding further management. * Quitting smoking is one of the most important things you can do for your health and for control of your asthma. It is highly recommended you quit. Review the provided handouts for details. Talk to your doctor about options available that can help you in your process to quit smoking. * Seek medication attention if you develop worse shortness of breath, high fever , chills, worse cough, or for any other concerns. Seek medical attention especially if your peak flow is 240 or less. Activity Instructions As tolerated. Appointments Follow-up with your primary care doctor in 3-5 days. Discharge Diet: Regular Discharge Medications New Medications: Acetaminophen (Acetaminophen) 325 Mg Tablet 650 MG PO Q6H PRN PAIN #0 Ref 0 TAB Albuterol/Ipratropium (Duoneb 3mg-0.5mg/3ml) 3 Ml Nebu 3 ML INH RTQ6HR #25 Ref 1 VIAL Doxycycline Hyclate (Vibramycin) 100 Mg Tablet 100 MG PO DAILY@, #16 Ref 0 TAB Guaifenesin (Mucinex) 600 Mg Tab 1200 MG PO BID Take for 5 days, then stop if improving. #20 Ref 0 TAB Loratadine (Claritin) 10 Mg Tablet 10 MG PO Q24HR PRN CONGESTION #30 Ref 0 TAB Montelukast Sodium (Montelukast Sodium) 10 Mg Tablet 10 MG PO HS #30 Ref 0 TAB Prednisone (Deltasone) 20 Mg Tab 60 MG PO DAILY@0800 #3 TAB Continued Medications: Albuterol Sulfate (Ventolin HFA) 90 Mcg/1 Puff Hfa.aer.ad 2 PUFF IH Q4H PRN SHORTNESS OF BREATH #1 Ref 2 INHALER (This prescription has been renewed) Albuterol Sulfate (Proventil 0.083%) 2.5 Mg/3 Ml Nebu 2.5 MG INH Q4H PRN SHORTNESS OF BREATH #25 Ref 1 VIAL (This prescription has been renewed) Mometasone/Formoterol (Dulera 100 mcg/5 mcg Inhaler) 13 Gm Hfa.aer.ad 2 PUFF IH BID #1 Ref 2 INHALER (This prescription has been renewed) Discontinued Medications: Prednisone (Prednisone) 20 Mg Tablet 3 TAB PO DAILY Inflammation #15 Ref 0 TAB Follow up New Orders: CT CHEST W - 07/17/17 Discharge Diagnosis See list above. Problems: Copies to: End of Report . NICK GAYLE MD April 23, 2017 12:43
== END 2017-04-23 12:12 | disposition home or self-care (01) | DRG 189 ==
LOC: ED 03:50 → MED/SURG 05:08
PROVIDERS: ADMIT Hospitalist; ATTEND Hospitalist
DX: J96.01 Acute respiratory failure with hypoxia (principal); J45.41 Moderate persistent asthma with (acute) exacerbation; E87.6 Hypokalemia; R91.8 Other nonspecific abnormal finding of lung field; E66.9 Obesity, unspecified; Z68.34 Body mass index [BMI] 34.0-34.9, adult; F17.200 Nicotine dependence, unspecified, uncomplicated; D72.823 Leukemoid reaction; T48.6X5A Adverse effect of antiasthmatics, initial encounter; T38.0X5A Adverse effect of glucocorticoids and synthetic analogues, initial encounter
CPT/HCPCS: 36415; 71010; 80053; 84703; 85025; 85379; 86140; 87486; 87581; 87633; 87798; 90732; 94640; 94669; 94760; 96361; 96374; 99283; 99284